=== PATIENT | male | born 1980 | race Caucasian/White ===

== ENCOUNTER 2022-10-26 19:20 | Emergency (ER) | payer OTHER ==
[2022-10-26 19:35] VITALS: BP 128/81; PULSE 102; RESP 18; TEMP 97.9
[2022-10-26] MEDS ORDERED: SULFAMETHOX-TMP 800-160MG 1 EACH TAB PO STA (20:55)
[2022-10-26] MEDS ORDERED: HYDROcodone/APAP 5-325MG 1 EACH TAB PO STA (20:55)
[2022-10-26] MEDS ORDERED: CEPHALEXIN 500 MG CAP PO STA (20:55)
--- NOTE | 2022-10-26 21:00 | ED ---
General Adult HPI - General Chief complaint: Skin/Abscess/Foreign Body Stated complaint: L knee pain Time Seen by Provider: 10/26/22 19:46 Source: patient, RN notes reviewed Mode of arrival: ambulatory - History of Present Illness Initial comments: 42-year-old male presents to the emergency Department with complaints of an area of redness and swelling around the left knee. Patient states he is concerned about an infection. Has had 2 sores that have been open and draining. Has been taking a leftover antibiotic from a previous prescription in the past 2 days. History of previous abscesses. Reports pain with palpation and bending the knee. Denies fever, chills, headache, chest pain, shortness of breath, nausea, or vomiting. - Related Data Previous Rx's Medication Instructions Recorded Cephalexin [Keflex] 500 mg PO BID 5 Days #10 cap 10/26/22 Ibuprofen [Motrin] 600 mg PO Q8HR PRN #30 tab 10/26/22 Sulfamethox-Tmp 800-160Mg [Bactrim 1 each PO Q12HR 5 Days #10 tab 10/26/22 Ds] Allergies Allergy/AdvReac Type Severity Reaction Status Date / Time No Known Allergies Allergy Verified 10/26/22 19:34 Review of Systems ROS Statement: Those systems with pertinent positive or pertinent negative responses have been documented in the HPI. ROS Other: All systems not noted in ROS Statement are negative. Past Medical History Additional Past Medical History / Comment(s): TBI History of Any Multi-Drug Resistant Organisms: None Reported Past Surgical History: No Surgical Hx Reported Past Psychological History: No Psychological Hx Reported Smoking Status: Former smoker Past Alcohol Use History: None Reported Past Drug Use History: Marijuana General Exam Limitations: no limitations General appearance: alert, in no apparent distress Respiratory exam: Present: normal lung sounds bilaterally. Absent: respiratory distress, wheezes, rales, rhonchi, stridor Cardiovascular Exam: Present: regular rate, normal rhythm, normal heart sounds. Absent: systolic murmur, diastolic murmur, rubs, gallop, clicks GI/Abdominal exam: Present: soft, normal bowel sounds. Absent: distended, tenderness, guarding, rebound, rigid Psychiatric exam: Present: normal affect, normal mood Skin exam: Present: warm, dry, intact, erythema (superior aspect of left knee) Expanded Type of lesion: Present: abscess (Erythema superior to left knee. Scabbed indurated area with no drainage or localized area of fluctuance.) Course Vital Signs 10/26/22 19:31 Temperature 97.9 F Pulse Rate 102 H Respiratory 18 Rate Blood Pressure 128/81 O2 Sat by Pulse 100 Oximetry Medical Decision Making - Medical Decision Making 42-year-old male presents to the emergency Department for evaluation of erythematous area superior to the left knee concerning for abscess. Area is indurated, though there are two small scabs where in which patient reports drainage. He had been taking what he thinks was leftover antibiotic in attempts to treat infection at home. Unable to incise the abscess as there was no discernable, fluctuant area. Patient was given a [place] and started on antibiotics. He is afebrile and instructed on wound care and the importance of medication compliance. He will be discharged home to follow up with his PCP for a recheck. Return parameters discussed in detail. Patient verbalizes understanding and agrees with this plan. Attending: Dane. Disposition Clinical Impression: Cutaneous abscess of left knee Disposition: HOME SELF-CARE Condition: Stable Instructions (If sedation given, give patient instructions): Abscess (ED) Additional Instructions: Take antibiotic as directed. Apply warm compress to affected area. Keep extremity elevated while at rest. Follow-up with your PCP for a recheck on Saturday. Return to the emergency department with any new, worsening, or concerning symptoms including fever, worsening pain, or increased swelling. Prescriptions: Sulfamethox-Tmp 800-160Mg [Bactrim Ds] 1 each PO Q12HR 5 Days #10 tab Cephalexin [Keflex] 500 mg PO BID 5 Days #10 cap Ibuprofen [Motrin] 600 mg PO Q8HR PRN #30 tab PRN Reason: Pain Is patient prescribed a controlled substance at d/c from ED?: No Referrals: None,Stated [Primary Care Provider] - 1-2 days Time of Disposition: 21:00
== END 2022-10-26 21:27 | disposition home or self-care (01) ==
LOC: EC 19:20
DX: L02.416 Cutaneous abscess of left lower limb (principal); F12.90 Cannabis use, unspecified, uncomplicated; Z87.891 Personal history of nicotine dependence
CPT/HCPCS: 99283